=== PATIENT | male | born 1985 | race African-American/Black ===

== ENCOUNTER 2023-02-07 04:52 | Inpatient (IN) | payer BC ==
--- OUTSIDE RECORDS SUMMARY | 2023-02-07 04:55 | XMS REPORT | Continuity of Care Document ---
:1985 Author Organization [facility] t Address [address] [place] [address]. [address] [place] [address] Care Team Providers Name Role Phone Pcp, Patient Does Not Have A Primary Care Physician [phone] LEAH LIM Attending Clinician Unavailable Leah Lim DO Attending Clinician HARITHA KIRBY Attending Clinician Unavailable Haritha Alexander Attending Clinician Problems Condition Condition Condition Status Onset Resolution Last Treating Co mments Source Name Details Category Date Date Treatment Clinician Date Screen for Screen for Disease Active Overview : Univers STD STD 10-13 Formattin ity of (sexually (sexually 00:00: g of this [place] transmitte transmitte 00 note Me dical d disease) d disease) might be Branch different from the original. ICD10 Diagnosis Term [employer] Chief Utility Tobacco Tobacco Disease Active Univers use use 10-13 ity of disorder disorder 00:00: [address] Allergies, Adverse Reactions, Alerts Allergy Allergy Status Severity Reaction(s) Onset Inactive Treating Comm ents Source Name Type Date Date Clinician NO KNOWN Drug Active Univers ALLERGIE Class ity of S [facility] Social History Social Habit Start Date Stop Date Quantity Comments Source History of Cigarette Smoker Universi ty of tobacco use [facility] Exposure to 2021-11-17 2021-11-27 Not sure University SARS-CoV-2 00:00:00 21:37:00 [facility] (event) Branch Alcohol intake 2021-11-27 2021-11-27 Current University of 00:00:00 00:00:00 non-drinker of [place] [facility] alcohol (finding) [place] Tobacco use and 2014-10-13 2014-10-13 Smokeless tobacco Un iversity of exposure 00:00:00 00:00:00 non-user [facility] Tobacco Comment 2014-10-13 2014-10-13 smokes 4 x per Unive rsity of 00:00:00 00:00:00 day [facility] Sex Ass[birth year] Universit y of 00:00:00 00:00:00 [facility] Smoking Status Start Date Stop Date Source Smokes tobacco daily 2014-10-13 00:00:00 Univers ity of [facility] Medications Ordered Filled Start Stop Current Ordering Indication Dosage Frequency Signature Comments Components Source Medication Medication Date Date Medication? Clinician (SIG) Name Name NaCl 0.9% 2022- No 1000mL at 999 Uni vers (NS) bolus 10-26 mL/hr, ity of infusion 18:30: 20:02 1,000 mL, [place] 1,000 mL 00 :00 IV Medical Infusion, Branch ONCE, 1 dose, On 10/26/22 at 1330, FANTASMA famotidine 2022- No 20mg 20 mg, Univ ers (PEPCID 10-26 Slow IV ity of (PF)) 17:45: 17:52 Push, [place] injection 00 :00 ONCE, 1 Medical 20 mg dose, On Branch 10/26/22 at 1245, FANTASMA ondansetron 2022- No 4mg 4 mg, Slow Univers (ZOFRAN 10-26 IV Push, ity of (PF)) 17:45: 17:52 ONCE, 1 [place] injection 4 00 :00 dose, On Medi leonidas mg Sat10/26/22 Branch at 1245, FANTASMA ondansetron Yes [id number] 4mg Take 1 Univers 4 mg 10-26 tablet by ity of disintegrat 00:00: mouth [place] ing tablet 00 every 8 Medica l (eight) Branch hours as needed for Nausea and Vomiting (N/V). NaCl 0.9% 2022-0 2022- No 1000mL at 999 Uni vers (NS) bolus 11-28 mL/hr, ity of infusion 05:30: 05:27 1,000 mL, [place] 1,000 mL 00 :00 IV Medical Infusion, Branch ONCE, 1 dose, On Tu11/28/21 at 0030, FANTASMA dicyclomine 2021- No 20mg 20 mg, Uni vers (BENTYL) 11-28 Intramuscu ity of injection 04:15: 03:28 lar, ONCE [place] 20 mg 00 :00 NOW, 1 Medical dose, On Branch Sat11/27/21 at 2315, Routine ondansetron 2021- No 4mg 4 mg, Univ ers (ZOFRAN-ODT 11-28 Oral, ity of ) 04:15: 03:28 ONCE, 1 [place] disintegrat 00 :00 dose, On Medi leonidas ing tablet Mon Branch 4 mg 11/27/21 at 2315, Routine NaCl 0.9% 2021- No 1000mL at 999 Uni vers (NS) bolus 11-28 mL/hr, ity of infusion 04:15: 04:18 1,000 mL, [place] 1,000 mL 00 :00 IV Medical Infusion, Branch ONCE, 1 dose, On Sat11/27/21 at 2315, FANTASMA ondansetron Yes [id number] 4mg Take 1 Univers 4 mg 7-11 tablet by ity of disintegrat 00:00: mouth [place] ing tablet 00 every 8 Medica l (eight) Branch hours as needed for Nausea and Vomiting (N/V). ondansetron 2022- No [id number] 4mg Take 1 Univers 4 mg 7-11 06-09 tablet by ity of disintegrat 00:00: 00:00 [place] tablet 00 :00 every 8 Medica l (eight) Branch hours as needed for Nausea and Vomiting (N/V). azithromyci Yes [id number] 500mg Take 1 Tab Univers n 6-04 by mouth ity of (ZITHROMAX) 00:00: [place]. [place] 500 mg 00 Medical tablet Branch azithromyci 2022- No [id number] 500mg Take 1 Tab Univers n 6-04 06-09 by mouth ity of (ZITHROMAX) 00:00: 00:00 daily. [place] 500 mg 00 :00 Medical tablet Branch Vital Signs Vital Name Observation Time Observation Value Comments Source Systolic blood 2022-10-26 20:00:00 107 mm[Hg] Univer sity of pressure [place] [facility] [place] Diastolic blood 2022-10-26 20:00:00 77 mm[Hg] Unive rsity of pressure [facility] Heart rate 2022-10-26 20:00:00 53 /min [facility]i ty [facility] [place] [facility] Respiratory rate 2022-10-26 20:00:00 12 /min Univ ersity [facility] [place] [facility] Oxygen saturation in 2022-10-26 20:00:00 100 /min University of Arterial blood by [place] [facility] leon[place] Pulse oximetry Branch Body temperature 2022-10-26 17:32:00 36.5 Berta Univ ersity [facility] [place] [facility] Body height 2022-10-26 17:32:00 175.3 cm [facility] [place] [facility] Body weight 2022-10-26 17:32:00 70.308 kg [facility] [place] [facility] BMI 2022-10-26 17:32:00 22.89 kg/m2 [facility] [place] [facility] Systolic blood 2021-11-28 05:00:00 106 mm[Hg] Univer sity of [facility] Branch Diastolic blood 2021-11-28 05:00:00 77 mm[Hg] Unive rsity of pressure [facility] Branch Heart rate 2021-11-28 05:00:00 52 /min [facility]i ty [facility] [place] [facility] Respiratory rate 2021-11-28 05:00:00 19 /min Univ ersity [facility] Medical Branch Oxygen saturation in 2021-11-28 05:00:00 99 /min University of Arterial blood by [place] [facility] leonidas Pulse oximetry Branch Body height 2021-11-28 02:38:00 175.3 cm [facility] [place] [facility] Body weight 2021-11-28 02:38:00 74.844 kg [facility] [place] [facility] BMI 2021-11-28 02:38:00 24.37 kg/m2 Universi ty [facility] Branch Procedures Procedure Date / Time Performed Performing Clinician Hemanth PEREIRA 2022-10-26 17:45:00 Leah Lim [facility] COMP. METABOLIC PANEL 2022-10-26 17:45:00 Leah Lim [facility] ([id number]) Medical [place] CBC WITH DIFF 2022-10-26 17:45:00 Leah Lim [facility] CONSENT/REFUSAL FOR 2022-10-26 17:25:28 Doctor Unassigned, No Un [facility] DIAGNOSIS AND Name Medical Branch TREATMENT CREATINE KINASE 2021-11-28 03:26:00 Haritha Kirby [facility] LIPASE 2021-11-28 03:26:00 Haritha Kirby [facility] COMP. METABOLIC PANEL 2021-11-28 03:26:00 Haritha Kirby [facility] ([id number]) [facility] CBC WITH DIFF 2021-11-28 03:26:00 Haritha Kirby [facility] URINALYSIS 2021-11-28 03:26:00 Haritha Kirby [facility] COVID-19 (ID NOW RAPID 2021-11-28 02:44:00 Brian Doty [facility] TESTING) [facility] Encounters Start End Encounter Admission Attending Care Care Encounter Source Date/Time Date/Time Type Type Clinicians Facility Department ID 2022-10-26 2022-10-26 [facility] [id number] Univers 12:34:00 15:04:00 LEAH stephenson [facility] 2022-10-26 2022-10-26 [facility] [id number] Univers 12:34:00 15:04:00 Leah MCDANIEL [id number] [facility] [id number] [facility] [id number] [facility] 084 Branch 2021-11-27 2021-11-28 Emergency [facility] [id number] Univers 21:44:00 00:32:00 HARITHA stephenson [facility] 2021-11-27 2021-11-28 Emergency [facility] [id number] Univers 21:44:00 00:32:00 Haritha MCDANIEL [id number] i ty [facility] [id number] [facility] [id number] [facility] 084 Branch Results Test Description Test Time Test Comments Results Result Comments Source COMP. METABOLIC PANEL ([id number]) 2022-10-26 18:46:58 Test Item Value Reference Range Interpretation Comme nts NA (test code = 3766290587) 139 mmol/L 135-145 K (test code = 8498956450) 4.8 mmol/L 3.5-5.0 CL (test code = 8763239996) 106 mmol/L 98-108 CO2 TOTAL (test code = 0433346234) 25 mmol/L 23-31 AGAP (test code = 0882855088) 8 2-16 BUN (test code = 6820214696) 17 mg/dL 7-23 GLUCOSE (test code = 9054941442) 96 mg/dL 70-110 CREATININE (test code = 0.86 mg/dL 0.60-1.25 2177739310) TOTAL BILI (test code = 1.0 mg/dL 0.1-1.8 0737528374) CALCIUM (test code = 2015520503) 9.2 mg/dL 8.6-10.6 T PROTEIN (test code = 7365163297) 8.1 g/dL 6.3-8.2 ALBUMIN (test code = 8838024794) 4.5 g/dL 3.5-5.0 ALK PHOS (test code = 7633790271) 63 U/L 34-122 ALTv (test code = 1742-6) 41 U/L 5-50 AST(SGOT) (test code = 4174041956) 61 U/L 13-40 H eGFR (test code = 5317399443) 100.1 mL/min/1.73m2 EMILEE (test code = EMILEE) Association of Glomerular Filtration Rate (GFR) and Staging of Kidney Disease* + +-------- + ------+| GFR (mL/min/1.73 m2) ?| With Kidney Damage ?| ?Without Kidney Damage+ +-- + +| ?>90 ?| ?Stage one ?| ? Normal ?+ +------- + -------+| ?60-89 ?| ?Stage two ?| ? Decreased GFR ? + +-------- + ------+| ?30-59 ?| ?Stage three ?| ? Stage three ? + +-------- + ------+| ?15-29 ?| ?Stage four ? | ? Stage four ?+ +------- + -------+| ?<15 (or dialysis) ? ?| ?Stage five ? | ? Stage five ?+ +------- + -------+ *Each stage assumes the associated GFR level has been in effect for at least three months. ?Stages 1 to 5, with or without kidney disease, indicate chronic kidney disease. Notes: Determination of stages one and two (with eGFR >59mL/min/1.73 m2) requires estimation of kidney damage for at least three months as defined by structural or functional abnormalities of the kidney, manifested by either:Pathological abnormalities or Markers of kidney damage (including abnormalities in the composition of the blood or urine or abnormalities in imaging tests). Lab Interpretation (test code = Abnormal 86361-2) [facility] 18:46:18 Test Item Value Reference Range Interpretation Comments LIPASE (test code = 4465635023) 30 U/L 0-220 Lab Interpretation (test code = Normal 18552-5) [facility] WITH [id number] 18:31:10 Test Item Value Reference Range Interpretation Comments WBC (test code = 7.01 See_Comment [Automated 9843-2) message] The sy stem which generated this result transmitted reference range : 4.20 - 10.70 10*3/?L. The reference range was not used to interpret this result as normal/abnormal . RBC (test code = 5.14 See_Comment [Automated 858-5) message] The sy stem which generated this result transmitted reference range : 4.26 - 5.52 10*6/?L. The reference range was not used to interpret this result as normal/abnormal . HGB (test code = 15.9 g/dL 12.2-16.4 718-7) HCT (test code = 47.5 % 38.4-49.3 4544-3) MCV (test code = 92.4 fL 81.7-95.6 787-2) MCH (test code = 30.9 pg 26.1-32.7 785-6) MCHC (test code = 33.5 g/dL 31.2-35.0 786-4) RDW-SD (test code = 44.6 fL 38.5-51.6 96007-1) RDW-CV (test code = 13.2 % 12.1-15.4 788-0) PLT (test code = 262 See_Comment [Automated 777-3) message] The sy stem which generated this result transmitted reference range : 150 - 328 10*3/ ?L. The reference r jurgen was not used to interpret this result as normal/abnormal . MPV (test code = 9.6 fL 9.8-13.0 L 79608-0) NRBC/100 WBC (test 0.0 See_Comment [Automat ed code = 1818701383) message] The system which generated this result transmitted reference range : 0.0 - 10.0 /100 WBCs. The refer ence range was not u sed to interpret th is result as normal/abnormal . NRBC x10^3 (test code See_Comment [Auto mated = 7850989154) message] The s ystem which generated this result transmitted reference range : 10*3/?L. The reference range was not used to interpret this result as normal/abnormal . GRAN MAT (NEUT) % 57.6 % (test code = 770-8) IMM GRAN % (test code 0.30 % = 5202307139) LYMPH % (test code = 30.0 % 736-9) MONO % (test code = 11.1 % 5905-5) EOS % (test code = 0.6 % 713-8) BASO % (test code = 0.4 % 706-2) GRAN MAT x10^3(ANC) 4.04 10*3/uL 1.99-6.95 (test code = 0497889616) IMM GRAN x10^3 (test 0.00-0.06 code = 3541111826) LYMPH x10^3 (test code 2.10 10*3/uL 1.09-3.23 = 731-0) MONO x10^3 (test code 0.78 10*3/uL 0.36-1.02 = 742-7) EOS x10^3 (test code = 0.04 10*3/uL 0.06-0.53 L 711-2) BASO x10^3 (test code 0.03 10*3/uL 0.01-0.09 = 704-7) Lab Interpretation Abnormal (test code = 66692-4) [facility] WITH [id number] 04:10:09 Test Item Value Reference Range Interpretation Comments WBC (test code = See_Comment [Automated 6690-2) message] The sy stem which generated this result transmitted reference range : 4.20 - 10.70 10*3/?L. The reference range was not used to interpret this result as normal/abnormal . RBC (test code = See_Comment [Automated 789-8) message] The sy stem which generated this result transmitted reference range : 4.26 - 5.52 10*6/?L. The reference range was not used to interpret this result as normal/abnormal . HGB (test code = 14.7 g/dL 12.2-16.4 718-7) HCT (test code = 44.6 % 38.4-49.3 4544-3) MCV (test code = 94.3 fL 81.7-95.6 787-2) MCH (test code = 31.1 pg 26.1-32.7 785-6) MCHC (test code = 33.0 g/dL 31.2-35 786-4) RDW-SD (test code = 44.0 fL 38.5-51.6 09713-3) RDW-CV (test code = 12.7 % 12.1-15.4 788-0) PLT (test code = See_Comment [Automated 777-3) message] The sy stem which generated this result transmitted reference range : 150 - 328 10*3/ ?L. The reference r jurgen was not used to interpret this result as normal/abnormal . MPV (test code = 9.3 fL 9.8-13 L 02142-2) NRBC/100 WBC (test See_Comment [Automat ed code = 9690008946) message] The system which generated this result transmitted reference range : 0.0 - 10.0 /100 WBCs. The refer ence range was not u sed to interpret th is result as normal/abnormal . NRBC x10^3 (test code See_Comment [Auto mated = 1476590170) message] The s ystem which generated this result transmitted reference range : 10*3/?L. The reference range was not used to interpret this result as normal/abnormal . GRAN MAT (NEUT) % 57.5 % (test code = 770-8) IMM GRAN % (test code 0.30 % = 4035542926) LYMPH % (test code = 27.9 % 736-9) MONO % (test code = 13.2 % 5905-5) EOS % (test code = 0.7 % 713-8) BASO % (test code = 0.4 % 706-2) GRAN MAT x10^3(ANC) 4.08 10*3/uL 1.99-6.95 (test code = 3070982085) IMM GRAN x10^3 (test 0-0.06 code = 7968306755) LYMPH x10^3 (test code 1.98 10*3/uL 1.09-3.23 = 731-0) MONO x10^3 (test code 0.94 10*3/uL 0.36-1.02 = 742-7) EOS x10^3 (test code = 0.05 10*3/uL 0.06-0.53 L 711-2) BASO x10^3 (test code 0.03 10*3/uL 0.01-0.09 = 704-7) Lab Interpretation Abnormal (test code = 72723-6) [facility]. METABOLIC PANEL ([id number])2021-11-28 04:00:09 Test Item Value Reference Range Interpretation Comments NA (test code = 140 mmol/L 135-145 3546788887) K (test code = 4.1 mmol/L 3.5-5 4728386191) CL (test code = 105 mmol/L 98-108 4141466400) CO2 TOTAL (test code = 26 mmol/L 23-31 9999643087) AGAP (test code = 2-16 9533379413) BUN (test code = 17 mg/dL 7-23 7404625055) GLUCOSE (test code = 84 mg/dL 70-110 5608564251) CREATININE (test code = 1.27 mg/dL 0.6-1.25 H 4715089360) TOTAL BILI (test code = 0.5 mg/dL 0.1-1.9 5568860368) CALCIUM (test code = 9.3 mg/dL 8.6-10.6 6346140671) T PROTEIN (test code = 7.4 g/dL 6.3-8.2 3156925480) ALBUMIN (test code = 4.5 g/dL 3.5-5 5002095946) ALK PHOS (test code = 66 U/L 34-122 7705574039) ALTv (test code = 26 U/L 5-50 1742-6) AST(SGOT) (test code = 30 U/L 13-40 0672084189) eGFR (test code = mL/min/1.73m2 3186821925) EMILEE (test code = EMILEE) Association of Glomerular Filtration Rate (GFR) and Staging of Kidney Disease* + --+ --+ ------+| GFR (mL/min/1.73 m2) ?| With Kidney Damage ?| ?Without Kidney Damage+ --------+ --------+ +| ?>90 ?| ?Stage one ?| ? Normal ?+ ---+ ---+ -------+| ?60-89 ?| ?Stage two ?| ? Decreased GFR ? + --+ --+ ------+| ?30-59 ?| ?Stage three ?| ? Stage three ? + --+ --+ ------+| ?15-29 ?| ?Stage four ? | ? Stage four ?+ ---+ ---+ -------+| ?<15 (or dialysis) ? ?| ?Stage five ? | ? Stage five ?+ ---+ ---+ -------+ *Each stage assumes the associated GFR level has been in effect for at least three months. ?Stages 1 to 5, with or without kidney disease, indicate chronic kidney disease. Notes: Determination of stages one and two (with eGFR >59mL/min/1.73 m2) requires estimation of kidney damage for at least three months as defined by structural or functional abnormalities of the kidney, manifested by either:Pathological abnormalities or Markers of kidney damage (including abnormalities in the composition of the blood or urine or abnormalities in imaging tests). Lab Interpretation Abnormal (test code = 68828-3) [facility] 04:00:09 Test Item Value Reference Range Interpretation Comments LIPASE (test code = 9843236224) 58 U/L 0-220 Lab Interpretation (test code = Normal 88731-6) [facility] [id number] 03:59:49 Test Item Value Reference Range Interpretation Comments CK (test code = 7691172882) 169 U/L 33-194 Lab Interpretation (test code = Normal 00657-8) [facility]"
--- NOTE | 2023-02-07 05:35 | EDPHYS ---
Physician Documentation [facility] Name: Carroll Temple Age: 37 yrs Sex: Male : 1985 Arrival Date: 02/07/2023 Time: 04:52 Bed 7 Private MD: ED Physician Brad Mason HPI: 02/07 05:16 This 37 yrs old Black Male presents to ER via Unassigned with complaints of Foot Pain, suleiman INFECTED FOOT. 05:16 The patient presents with decreased range of motion, pain, that is acute. The suleiman complaints affect the right foot, ball of right foot and arch of right foot. Context: resulted from the patient stepping on a nail, while wearing shoes, Mechanism of Injury: puncture. Onset: The symptoms/episode began/occurred 7 day(s) ago. Modifying factors: The symptoms are alleviated by nothing, elevation of extremity, the symptoms are aggravated by weight bearing, movement, wearing shoes. Associated signs and symptoms: Pertinent positives: swelling. Severity of symptoms: At their worst the symptoms were moderate, in the emergency department the symptoms are unchanged. The patient has not experienced similar symptoms in the past. Historical: - Allergies: 05:18 No Known Allergies; kd3 - Home Meds: 05:18 None [Active]; kd3 - PMHx: 05:18 None; kd3 - Immunization history:: Adult Immunizations up to date. - Social history:: Smoking status: Patient denies any tobacco usage or history of. ROS: 05:20 Constitutional: Negative for fever, chills, and weight loss, Eyes: Negative for injury, suleiman pain, redness, and discharge, ENT: Negative for injury, pain, and discharge, Neck: Negative for injury, pain, and swelling, Cardiovascular: Negative for chest pain, palpitations, and edema, Respiratory: Negative for shortness of breath, cough, wheezing, and pleuritic chest pain, Abdomen/GI: Negative for abdominal pain, nausea, vomiting, diarrhea, and constipation, Back: Negative for injury and pain, : Negative for injury, bleeding, discharge, and swelling, Skin: Negative for injury, rash, and discoloration, Neuro: Negative for headache, weakness, numbness, tingling, and seizure, Psych: Negative for depression, anxiety, suicide ideation, homicidal ideation, and hallucinations, Allergy/Immunology: Negative for hives, rash, and allergies, Endocrine: Negative for neck swelling, polydipsia, polyuria, polyphagia, and marked weight changes, Hematologic/Lymphatic: Negative for swollen nodes, abnormal bleeding, and unusual bruising, 05:20 MS/extremity: Positive for decreased range of motion, erythema, pain, swelling, tenderness, of the right foot, Exam: 05:20 Constitutional: This is a well developed, well nourished patient who is awake, alert, suleiman and in no acute distress. Head/Face: Normocephalic, atraumatic. Eyes: Pupils equal round and reactive to light, extra-ocular motions intact. Lids and lashes normal. Conjunctiva and sclera are non-icteric and not injected. Cornea within normal limits. Periorbital areas with no swelling, redness, or edema. ENT: Nares patent. No nasal discharge, no septal abnormalities noted. Tympanic membranes are normal and external auditory canals are clear. Oropharynx with no redness, swelling, or masses, exudates, or evidence of obstruction, uvula midline. Mucous membranes moist. Neck: Trachea midline, no thyromegaly or masses palpated, and no cervical lymphadenopathy. Supple, full range of motion without nuchal rigidity, or vertebral point tenderness. No Meningismus. Chest/axilla: Normal chest wall appearance and motion. Nontender with no deformity. No lesions are appreciated. Cardiovascular: Regular rate and rhythm with a normal S1 and S2. No gallops, murmurs, or rubs. Normal PMI, no JVD. No pulse deficits. Respiratory: Lungs have equal breath sounds bilaterally, clear to auscultation and percussion. No rales, rhonchi or wheezes noted. No increased work of breathing, no retractions or nasal flaring. Abdomen/GI: Soft, non-tender, with normal bowel sounds. No distension or tympany. No guarding or rebound. No evidence of tenderness throughout. Back: No spinal tenderness. No costovertebral tenderness. Full range of motion. Male : Normal genitalia with no discharge or lesions. Skin: Warm, dry with normal turgor. Normal color with no rashes, no lesions, and no evidence of cellulitis. Neuro: Awake and alert, GCS 15, oriented to person, place, time, and situation. Cranial nerves II-XII grossly intact. Motor strength 5/5 in all extremities. Sensory grossly intact. Cerebellar exam normal. Normal gait. Psych: Awake, alert, with orientation to person, place and time. Behavior, mood, and affect are within normal limits. 05:20 Musculoskeletal/extremity: ROM: no acute changes, Circulation is intact in all extremities. Sensation intact. Compartment Syndrome exam of affected extremity: is normal. DVT Exam: negative Homans' sign noted on exam, no appreciated bluish discoloration, pain, swelling, tenderness, erythema, increased warmth, that is moderate, of the right foot, 06:17 ECG was reviewed by the Attending Physician. [facility] Vital Signs: 05:16 BP 105 / 80; Pulse 78; Resp 19; Temp 99.2(O); Pulse Ox 99% on R/A; Weight 74.84 kg; kd3 Height 5 ft. 8 in. ; Pain 8/10; 06:49 BP 133 / 81; Pulse 62; Resp 19; Pulse Ox 100% on R/A; kd3 05:16 Body Mass Index 25.09 (74.84 kg, 172.72 cm) kd3 05:16 Pain Scale: Adult kd3 MDM: 05:04 Patient medically screened. [facility] 06:15 Differential diagnosis: fracture, sprain, foreign body, penetrating trauma, gout, suleiman cellulitis. Data reviewed: vital signs, nurses notes, lab test result(s), EKG, radiologic studies, plain films. Consideration of Admission/Observation Patient was admitted/placed on observation. Escalation of care including admission/observation considered. I considered the following discharge prescriptions or medication management in the emergency department Medications were administered in the Emergency Department. See MAR. Independent interpretation of the following test(s) in the Emergency Department X-Ray: My interpretation is r foot xray. Test considered but Not performed: MRI: no mri. Historians other than the Patient: pt well informed. Care significantly affected by the following chronic conditions: none. Counseling: I had a detailed discussion with the patient and/or guardian regarding the historical points, exam findings, and any diagnostic results supporting the discharge/admit diagnosis, lab results, radiology results, the need for further work-up and treatment in the hospital. 02/07 05:15 Order name: CBC with Diff; Complete Time: 06:18 [facility] 02/07 05:15 Order name: Comprehensive Metabolic Panel; Complete Time: 06:18 [facility] 02/07 05:22 Order name: PT-INR; Complete Time: 06:18 [facility] 02/07 05:15 Order name: Foot Right 3 View XRAY [facility] 02/07 05:22 Order name: Chest Single View XRAY [facility] 02/07 05:22 Order name: EKG; Complete Time: 05:23 [facility] 02/07 05:15 Order name: NPO; Complete Time: 05:20 [facility] 02/07 05:22 Order name: EKG - Nurse/Tech; Complete Time: 05:50 [facility] EC:17 Rate is 60 beats/min. Rhythm is regular. QRS [place] is Normal. CT interval is normal. QRS suleiman interval is normal. QT interval is normal. No Q waves. T waves are Normal. No ST changes noted. Clinical impression: NSR w/ Non-specific ST/T Changes and No evidence of ischemia. Interpreted by me. Reviewed by me. Administered Medications: 05:50 Drug: Clindamycin IVPB 900 mg IVPB once over 30 mins; (mix in 50 mL) Route: IVPB; kd3 Infused Over: 30 mins; Site: right antecubital; 06:32 Follow up: IV Status: Completed infusion kd3 05:50 Drug: NS 0.9% IV 1000 ml IV at 1 bolus Per protocol; 1000 mL bolus Route: IV; Rate: 1 kd3 bolus; Site: right antecubital; 05:50 Drug: morphine IVP or IV 4 mg IVP once over 4 mins Route: IVP; Infused Over: 4 mins; kd3 Site: right antecubital; 06:50 Follow up: Response: No adverse reaction; Pain is decreased kd3 05:50 Drug: Ondansetron IVP 4 mg IVP once; over 2 minutes Route: IVP; Site: right antecubital;kd3 06:50 Follow up: Response: No adverse reaction kd3 06:32 Drug: levofloxacin IVPB 750 mg 150 ml IVPB once over 90 mins Volume: 150 ml; Route: kd3 IVPB; Infused Over: 90 mins; Site: right antecubital; 07:44 Drug: NS 0.9% IV 1000 ml IV at 125 ml/hr continuous Route: IV; Rate: 125 ml/hr; Site: rs5 right antecubital; Disposition Summary: 02/07/23 05:34 Hospitalization Ordered Notes: Hospitalization Status: Observation [facility] Provider: Anil Carrillo cha Location: Telemetry/MedSurg (observation) suleiman Condition: Stable suleiman Problem: an ongoing problem suleiman Symptoms: have improved suleiman Bed/Room Type: Standard [facility] Room Assignment: suleiman Diagnosis - Puncture wound without foreign body, right foot - infected suleiman - Elevated white blood cell count, unspecified suleiman Forms: - Medication Reconciliation Form suleiman - SBAR form suleiman - Leadership Thank You Letter suleiman Signatures: Dispatcher [employer] Brad Victor MD MD cha Doucette, Kyli, RN RN kd3 Arnold Jacobs RN RN rs5 Corrections: (The following items were deleted from the chart) 06:27 05:43 Dressing - Wound ordered. suleiman kd3
--- NOTE | 2023-02-07 05:35 | ER ---
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 I got a tetanus shot from my employee health office. But since i stepped on the nail, the swelling and pain has gotten progressively worse in the foot. Coronavirus screen: Vaccine status: Patient reports being unvaccinated. Ebola Screen: No symptoms or risks identified at this time. Initial Sepsis Screen: Does the patient meet any 2 criteria? No. Patient's initial sepsis screen is negative. Does the patient have a suspected source of infection? No. Patient's initial sepsis screen is negative. Risk Assessment: Do you want to hurt yourself or someone else? Patient reports no desire to harm self or others. Onset of symptoms was February 07, 2023. 05:16 Method Of Arrival: Wheelchair kd3 05:16 Acuity: EDITH 3 kd3 Triage Assessment: 05:18 General: Appears uncomfortable, Behavior is anxious. Pain: Complains of pain in right kd3 foot. 05:18 Musculoskeletal: Swelling present in right foot. Injury Description: Puncture sustained kd3 to arch of right foot. Historical: - Allergies: 05:18 No Known Allergies; kd3 - Home Meds: 05:18 None [Active]; kd3 - PMHx: 05:18 None; kd3 - Immunization history:: Adult Immunizations up to date. - Social history:: Smoking status: Patient denies any tobacco usage or history of. Screenin:19 [facility] ED Fall Risk Assessment (Adult) History of falling in the last 3 months, kd3 including since admission No falls in past 3 months (0 pts) Confusion or Disorientation No (0 pts) Intoxicated or Sedated No (0 pts) Impaired Gait Yes (1 pt) Mobility Assist Device Used No (0 pt) Altered Elimination No (0 pt) Score/Fall Risk Level 0 - 2 = Low Risk Maintained a safe environment. Abuse screen: Denies threats or abuse. Denies injuries from another. Nutritional screening: No deficits noted. Tuberculosis screening: No symptoms or risk factors identified. Assessment: 05:50 General: see triage . kd3 06:49 General: Appears comfortable, Behavior is calm, cooperative. Neuro: Level of kd3 Consciousness is awake, alert, obeys commands, Oriented to person, place, time, situation. Cardiovascular: Patient's skin is warm and dry. Respiratory: Airway is patent Trachea midline Respiratory effort is even, unlabored, Respiratory pattern is regular, symmetrical. Vital Signs: 05:16 BP 105 / 80; Pulse 78; Resp 19; Temp 99.2(O); Pulse Ox 99% on R/A; Weight 74.84 kg; kd3 Height 5 ft. 8 in. ; Pain 8/10; 06:49 BP 133 / 81; Pulse 62; Resp 19; Pulse Ox 100% on R/A; kd3 05:16 Body Mass Index 25.09 (74.84 kg, 172.72 cm) kd3 05:16 Pain Scale: Adult kd3 ED Course: 05:03 Patient arrived in ED. es 05:04 Brad Mason MD is Attending Physician. suleiman 05:15 Char Weber, HU is Primary Nurse. kd3 05:18 Triage completed. kd3 05:18 Arm band placed on right wrist. kd3 05:19 Patient has correct armband on for positive identification. Provided Education on: . kd3 05:31 Anil Carrillo MD is Hospitalizing Provider. suleiman 05:49 CBC with Diff Sent. kd3 05:49 Comprehensive Metabolic Panel Sent. kd3 05:50 PT-INR Sent. kd3 05:58 Foot Right 3 View XRAY In Process Unspecified. EDMS 05:58 Chest Single View XRAY In Process Unspecified. EDMS Administered Medications: 05:50 Drug: Clindamycin IVPB 900 mg IVPB once over 30 mins; (mix in 50 mL) Route: IVPB; kd3 Infused Over: 30 mins; Site: right antecubital; 06:32 Follow up: IV Status: Completed infusion kd3 05:50 Drug: NS 0.9% IV 1000 ml IV at 1 bolus Per protocol; 1000 mL bolus Route: IV; Rate: 1 kd3 bolus; Site: right antecubital; 05:50 Drug: morphine IVP or IV 4 mg IVP once over 4 mins Route: IVP; Infused Over: 4 mins; kd3 Site: right antecubital; 06:50 Follow up: Response: No adverse reaction; Pain is decreased kd3 05:50 Drug: Ondansetron IVP 4 mg IVP once; over 2 minutes Route: IVP; Site: right antecubital;kd3 06:50 Follow up: Response: No adverse reaction kd3 06:32 Drug: levofloxacin IVPB 750 mg 150 ml IVPB once over 90 mins Volume: 150 ml; Route: kd3 IVPB; Infused Over: 90 mins; Site: right antecubital; 07:44 Drug: NS 0.9% IV 1000 ml IV at 125 ml/hr continuous Route: IV; Rate: 125 ml/hr; Site: rs5 right antecubital; Medication: 06:49 VIS not applicable for this client. kd3 Outcome: 05:34 Decision to Hospitalize by Provider. [facility] 12:05 Patient left the ED. aa5 Signatures: Dispatcher [employer] Brad Victor MD MD cha Salyer, Edna es Calderon, Audri, RN RN aa5 Char Weber RN RN kd3 Arnold Jacobs RN RN rs5
[2023-02-07] MEDS ORDERED: MORPHINE 4 MG/ML SYR ONE (05:42)
[2023-02-07] MEDS ORDERED: ONDANSETRON 4 MG/2 ML VIAL ONE ×2 (05:42→12:50)
[2023-02-07] MEDS ORDERED: CLINDAMYCIN 900MG/D5W 900 MG/50 ML IVPB IV ONE (05:43)
[2023-02-07] MEDS ORDERED: Levofloxacin 750mg IV 750 MG/150 ML BAG IV ONE (05:43)
[2023-02-07] MEDS ORDERED: NA CHLORIDE 0.9% 2,000 ML ONE (05:43)
[2023-02-07 05:44] LABS: Absolute Lymphocytes (CBC) 0.9 K/uL (0.7-4.9); Hematocrit 44.1 % (39.6-49.0); Lymphocytes % 5.4 % (15.3-44.8); MCV 92.1 fL (80-100); MPV 7.8 fL (7.6-11.3); Platelets 297 thou/uL (152-406); RBC Red Blood Cell Count 4.79 M/uL (4.33-5.43)
[2023-02-07 06:01] LABS: Albumin 4.4 g/dL (3.4-5.0); Bilirubin Total 0.5 mg/dL (0.2-1.0); Potassium 3.9 mEq/L (3.5-5.1); Protein, Total 8.6 g/dL (6.4-8.2)
[2023-02-07 06:12] LABS: Protime INR 1.07
[2023-02-07 08:13] VITALS: BMI 24.3
[2023-02-07] MEDS ORDERED: INFLUENZA VACCINE (for 6+ mo) 0.5 ML DOSE IMVAC ONE (10:00)
[2023-02-07] MEDS ORDERED: PNEUMOCOCCAL VACCINE 0.5 ML IMVAC ONE (10:00)
--- NOTE | 2023-02-07 10:36 | HP ---
Date of Admission: 02/07/2023 Reason For Service: Right foot cellulitis, abscess, puncture wound, possible retained foreign body. Indication: This is the case of a male, who received a puncture wound as he claimed about a week ago after he was stepping on a nail while wearing his shoes. He is trying to deal with this for the las t few days. On the last few hours overnight, the pain got worse, he came to the ER, found to have sw elling over the area with cellulitis present, possibility of an abscess. The puncture wound is evide nt, although there is no drainage at this moment. That sealed few days ago and the swelling develope d. He cannot tell about any foreign body there, may be from the shoes itself and his fabrics, but he claimed the nail was not broken. Denies any dysuria, hematuria, hematochezia, melena. Denies any r ecent traveling out of the country. Denies any family member sick at home. Review of Systems: Ten points otherwise unremarkable. Allergies: NONE. Medications: None. Past Medical History: None. Social History: He does not smoke. He does not drink alcohol. Family History: Noncontributory. Physical Examination: General: The patient is awake, alert. HEENT: Pupils are equal, reactive. Anicteric. Neck: Supple. Chest: Clear. Heart: S1, S2. Abdomen: Soft and depressible. No guarding or rebound. Extremities: Good capillary refill. Peripheral pulses, dorsalis pedis, radialis present. Over the dorsum of the plantar surface of the foot, the patient has evidence and tattoo of the previous punctu re. At this moment, it is not draining, but underneath you feel fluctuance and abscess covering the entire arch of the foot. It is consistent with cellulitis and an abscess. No cyanosis of the toes. Neuro: Cranial nerves 2 through 12 grossly within normal limits. Laboratory Data: Blood work shows a WBC count of 16.9 with hemoglobin of 15. INR is 1.07. Potassiu m is 3.9, creatinine is 1.48, glucose 127, BUN is 21. Foot x-ray, official report is still pending, although grossly we do not see any metallic object there. Once again, other materials from the shoes can be hidden without localization on this x-ray. There is moderate diffuse and right foot edema. Assessment: This is a 37-year-old patient, who comes to us status post puncture wound over the right foot region few days ago, developed now swelling, redness consistent with abscess. This happened wh en he was stepped on a nail. He was using his shoes and the nail did not break, but it is hard to sa y if there is any foreign body retained from the fabric of the shoes itself that means rubber or fabr ic. For fact we have an abscess in that region, so we are going to do a wound exploration with drain age of an abscess and possible removal of foreign body since I explained to him sometimes it is not p ossible to find it. The benefits, alternatives, and risks of this procedure were fully explained to the patient, which include, but not limited to infection, bleeding, damage to adjacent structures, an esthesia complication, inability to find foreign bodies, chronic nonhealing wound, chronic pain, AL, and even . He may require wound care. He is very tender in that area. He wants to do under an esthesia and I do understand because of the entire sole of the foot, which is swollen. The OR was im mediately booked in OR. JOSEPHINE/PAUL Voice ID: [id number]
--- NOTE | 2023-02-07 11:47 | RAD REPORT ---
EXAM DESCRIPTION: XR Right Foot 3 Views CLINICAL HISTORY: Pain COMPARISON: None. TECHNIQUE: Right Foot 3 Views FINDINGS: No fracture or dislocation. No significant sclerotic/lytic bone lesion. Joint spaces unremarkable. Moderate, diffuse, right foot edema. IMPRESSION: Moderate, diffuse, right foot edema. Electronically signed by: Ezekiel Kenney MD 02/07/2023 6:24 AM CDT Due to temporary technical issues with the PACS/Fluency reporting system, reports are being signed by the in house radiologists without review as a courtesy to insure prompt reporting. The interpreting radiologist is fully responsible for the content of the report.
--- NOTE | 2023-02-07 11:57 | RAD REPORT ---
EXAM DESCRIPTION: XR Chest, 1 View CLINICAL HISTORY: The patient is 37 years old and is Male; COUGH TECHNIQUE: Frontal view of the chest. COMPARISON: No relevant prior studies available. FINDINGS: Lungs: Unremarkable. No consolidation. Pleural space: Unremarkable. No pneumothorax. Heart: Unremarkable. Mediastinum: Unremarkable. Bones/joints: No acute findings. IMPRESSION: No acute findings in the chest. Electronically signed by: Adi Simental MD 02/07/2023 6:05 AM CDT Due to temporary technical issues with the PACS/Fluency reporting system, reports are being signed by the in house radiologists without review as a courtesy to insure prompt reporting. The interpreting radiologist is fully responsible for the content of the report.
[2023-02-07] MEDS ORDERED: LIDOCAINE 2% MPF 5 ML VIAL ONE (12:15)
[2023-02-07] MEDS ORDERED: dexAMETHasone 10 MG/ML VIAL ONE (12:15)
[2023-02-07] MEDS ORDERED: FENTANYL CITR 100 MCG/2 ML ONE (12:15)
[2023-02-07] MEDS ORDERED: propofoL 200 MG/20 ML VIAL IV ONE (12:15)
[2023-02-07] MEDS ORDERED: KETOROLAC 30 MG/ML INJ ONE (12:15)
[2023-02-07] MEDS ORDERED: MIDAZOLAM HCL 2 MG/2 ML INJ ONE (12:16)
[2023-02-07] MEDS ORDERED: ONDANSETRON 4 MG/2 ML VIAL IV PRN (13:19)
[2023-02-07] MEDS ORDERED: ACETAMINOPHEN 325 MG TABLET PO PRN (13:19)
[2023-02-07] MEDS: NA CHLORIDE 0.9% 1,000 ML IV SCH ×2 (13:19→15:10)
[2023-02-07] MEDS: MORPHINE 4 MG/ML SYR ONE ×2 (13:46→13:56)
--- NOTE | 2023-02-07 14:25 | P.BOP ---
Preoperative diagnosis: s/p puncture wound right foot, non healing wound, abscess, cellulitis Postoperative diagnosis: same Primary procedure: Right plantar foot wound exploration with abscess drainage Secondary procedure: SubQ debridement of divitalized amd foreign debri tissue Other procedure(s): 5x3cm Estimated blood loss: <10cc Specimen: culture Findings: see dicta Anesthesia: General Complications: None Drain(s): Other (/" nugauze) Transferred to: Recovery Room Condition: Good
[2023-02-07] MEDS: CLINDAMYCIN 900MG/D5W 900 MG/50 ML IVPB IV SCH (16:30)
--- NOTE | 2023-02-07 17:21 | OP ---
Date of Procedure: 02/07/2023 Surgeon: Anil Carrillo MD Preoperative Diagnoses: Status post puncture wound of right foot, nonhealing wound, abscess, celluli tis. Postoperative Diagnoses: Status post puncture wound of right foot, nonhealing wound, abscess, cellul itis. Procedures: Right plantar foot wound exploration with abscess drainage, subcutaneous debridement of devitalized tissue with foreign body debris present. The abscess is about 5 x 3 cm. Estimated Blood Loss: Less than 10 cc. Specimen: Culture. Findings: The patient has this puncture wound, almost goes to the dorsum of the foot itself. There is a tunnel present in that area and that tunnel passed the fascia and then goes posterior to develop this abscess. The area was explored, profusely irrigated. We have some debris and devitalized tiss ue with some debris in it, but we cannot identify any large foreign body in that region. Anesthesia: General plus local. Packing: A quarter of an inch Nu Gauze. Indication: This is the case of a male. He does have a puncture wound on his foot about a week ago. He gets swollen to the point of the foot. We cannot see the plantar arch anymore. This morning, h e comes early hours of the morning because he could walk because of the pressure and the pain, and I was called for the evaluation and surgical intervention. The benefits, alternatives, and risks of in cision and drainage of the right foot abscess with exploration of the wound and possible removal of f oreign body fully explained to the patient, which include, but not limited to infection, bleeding, da mage to adjacent structures, anesthesia complication, recurrence, NE, and even . He also unders tands this may not relieve any symptoms. He might need more than one surgical intervention. He will require wound care. He signed a consent. Procedure In Detail: The patient was brought to the operating room, placed in supine position. Anes thesia was done without complication. Prior to surgery, we marked the area of the puncture wound, al though it is very obvious. So, once we prepped that area, time-out was called. We injected local an esthetic and then explored that wound. We unfortunately have to remove some devitalized tissue prese nt when we removed that tissue. Then, we have access to the tunnel and we see how deep this goes all the way down to the plantar fascia, goes deep into the area near the metatarsal region. We were abl e to that area to put the retractors and then be able to examine the area. Profuse irrigation was do ne of that cavity. A cavity that we found is about 5 x 3 cm. Cultures were obtained. But after irr igation and examination of the area, I cannot see any large foreign body, only the debris probably fr om the nail itself. I did not see any piece of nail in that region. The previous x-ray did not show any metallic foreign body anyway. We profusely irrigated the area. At this moment, we do not want to create more damage than the nail already did. We have enough exploration of that area. He also h as a chance that we explained to him before that. We might not be able to find foreign body even it is there. He understands that risk. Profuse irrigation was done and then hemostasis was obtained an d we proceeded to pack the abscess with a quarter of an inch iodoform. The patient tolerated the pro cedure well. The patient was sent to recovery in stable condition. JOSEPHINE/PAUL Voice ID: [id number] Report ID: [id number]
[2023-02-07] MEDS: MORPHINE 4 MG/ML SYR IV PRN (18:10)
[2023-02-08] MEDS: NA CHLORIDE 0.9% 1,000 ML IV SCH ×4 (00:03→19:33)
[2023-02-08] MEDS: CLINDAMYCIN 900MG/D5W 900 MG/50 ML IVPB IV SCH ×3 (00:03→18:10)
[2023-02-08] MEDS: MORPHINE 4 MG/ML SYR IV PRN ×5 (00:45→19:33)
[2023-02-08 03:19] LABS: Absolute Lymphocytes (CBC) 0.7 K/uL (0.7-4.9); Hematocrit 38.6 % (39.6-49.0); Lymphocytes % 5.1 % (15.3-44.8); MCV 92.2 fL (80-100); MPV 7.5 fL (7.6-11.3); Platelets 281 thou/uL (152-406); RBC Red Blood Cell Count 4.18 M/uL (4.33-5.43)
[2023-02-08 03:27] LABS: Potassium 4.3 mEq/L (3.5-5.1)
[2023-02-08] MEDS: Levofloxacin 750mg IV 750 MG/150 ML BAG IV SCH (05:31)
--- NOTE | 2023-02-08 17:16 | EKG ---
Test Date: 2023-02-07 Test Time: 05:54:20 Ip Paralegal: CYNTHIA MEASUREMENT RESULTS: Intervals: Rate: 60 DC: 188 QRSD: 100 QT: 394 QTc: 394 [place]: P: 51 DC: 188 QRS: 65 T: 3 INTERPRETIVE STATEMENTS: Normal sinus rhythm Nonspecific ST abnormality Abnormal ECG No previous ECG available for comparison Electronically Signed On 02-08-23 17:11:56 CDT by Kraig Ashford
[2023-02-09] MEDS: CLINDAMYCIN 900MG/D5W 900 MG/50 ML IVPB IV SCH ×3 (00:49→16:00)
[2023-02-09] MEDS: MORPHINE 4 MG/ML SYR IV PRN ×5 (00:50→21:43)
[2023-02-09] MEDS: Levofloxacin 750mg IV 750 MG/150 ML BAG IV SCH (05:03)
[2023-02-09] MEDS: NA CHLORIDE 0.9% 1,000 ML IV SCH ×4 (05:04→21:44)
--- NOTE | 2023-02-09 13:13 | P.PN ---
Subjective Date of Service: 02/08/23 Chief Complaint: foot abscess , cellulitis, s/p traumatic puncture Subjective: Tolerating diet, Improving Review of Systems General: Unremarkable ENT: Unremarkable Respiratory: Unremarkable Cardiovascular: Unremarkable Gastrointestinal: Unremarkable Genitourinary: Unremarkable Physical Examination - Vital Signs Temperature: 97.6 F Blood Pressure: 103/62 Pulse: 66 Respirations: 16 Pulse Ox (%): 97 - Physical Exam General: Alert, In no apparent distress, Oriented x3, Oriented x1 HEENT: Atraumatic, PERRLA Neck: Supple Respiratory: Normal air movement Cardiovascular: No edema, Normal pulses Gastrointestinal: Soft and benign Musculoskeletal: Swelling, Erythema, Tenderness, Warmth Integumentary: No cyanosis, Erythema, Warmth Neurological: Normal speech Assessment And Plan - Plan cont IV abx Pain control ambulation with assistance
--- NOTE | 2023-02-09 15:12 | PN ---
Date of Progress Note: 02/09/2023 Diagnosis: Foot cellulitis with status post traumatic puncture wound with a nail with a large absces s on the foot. Subjective: The patient was taken to the OR for drainage of an abscess debridement. The patient is doing better, but still the area with cellulitis. He cannot put a pressure there yet. Physical Examination: Vital Signs: Afebrile. Chest: Clear. Abdomen: Soft and depressible. Extremities: Good capillary refill. Foot shows packing removed today, large cavity. Swelling is st ill present, although diminished and redness also diminished and still present, slasher tender. Plan: We are going to continue the antibiotics. Follow up on the cultures. We are going to rehab t o evaluate him for possible assistance on his walking since he can barely put any pressure there. Hi s WBC count has come down from 17 to 13. The culture is still pending. JOSEPHINE/PAUL Voice ID: [id number] Report ID: [id number]
[2023-02-10] MEDS: CLINDAMYCIN 900MG/D5W 900 MG/50 ML IVPB IV SCH ×3 (00:21→17:10)
[2023-02-10] MEDS: Levofloxacin 750mg IV 750 MG/150 ML BAG IV SCH (05:01)
[2023-02-10] MEDS: NA CHLORIDE 0.9% 1,000 ML IV SCH ×3 (06:48→19:19)
[2023-02-10] MEDS: MORPHINE 4 MG/ML SYR IV PRN ×3 (10:04→22:50)
--- NOTE | 2023-02-10 11:04 | PN ---
Date of Progress Note: 02/10/2023 Diagnoses: Foot cellulitis, status post traumatic puncture wound with abscess, status post explorati on and drainage of a large abscess. Subjective: The patient is doing better. He still has swelling over the foot, a little bit less, li ttle bit less erythema too. Vital signs stable. Review of Systems: Ten points otherwise unremarkable. Physical Examination: Chest: Clear. Abdomen: Soft and depressible. Extremities: Good capillary refill. Right foot is still swollen, but less in amount, less erythema. No fluctuance. No crepitus. Packings were removed. Plan: We are getting a rehab to help him with safe ambulation and train him how to do the crutches w ith the postop shoes. We anticipate to probably send him home tomorrow if clinically he continues im proving with p.o. antibiotics by mouth. JOSEPHINE/PAUL Voice ID: [id number] Report ID: [id number]
[2023-02-11] MEDS: CLINDAMYCIN 900MG/D5W 900 MG/50 ML IVPB IV SCH ×2 (00:18→08:53)
[2023-02-11] MEDS: MORPHINE 4 MG/ML SYR IV PRN (05:01)
[2023-02-11] MEDS: NA CHLORIDE 0.9% 1,000 ML IV SCH (05:01)
[2023-02-11] MEDS: Levofloxacin 750mg IV 750 MG/150 ML BAG IV SCH (05:01)
[2023-02-11 08:59] VITALS: O2SAT 94
[2023-02-11 09:39] VITALS: BP 117/79; TEMP 96.8
--- NOTE | 2023-02-11 10:38 | P.DS ---
Admission Date: 02/10/23 Discharge Date: 02/11/23 Disposition: ROUTINE DISCHARGE Discharge Condition: GOOD Reason for Admission: foot abscess , cellulitis, s/p traumatic puncture Hospital Course: unremarkable Vital Signs/Physical Exam: Temp Pulse Resp BP Pulse Ox 96.8 F 51 16 117/79 99 02/11/23 08:00 02/11/23 08:00 02/11/23 08:00 02/11/23 08:00 02/11/23 08:00 General: Alert, In no apparent distress, Oriented x3, Cooperative HEENT: PERRLA Neck: Supple Respiratory: Normal air movement Cardiovascular: No edema, Normal pulses Gastrointestinal: Soft and benign, Non-distended, No rebound, No guarding Musculoskeletal: No clubbing, No swelling, No contractures, No warmth, Erythema (improved) Integumentary: No rashes, No breakdown, No warmth, No cyanosis, Erythema (improved) Neurological: Normal speech Laboratory Data at Discharge: WBC 12.90 thou/uL (4.3-10.9) H 02/08/23 02:23 Hgb 13.1 g/dL (13.6-17.9) L D 02/08/23 02:23 Hct 38.6 % (39.6-49.0) L 02/08/23 02:23 Plt Count 281 thou/uL (152-406) 02/08/23 02:23 PT 12.7 SECONDS (9.2-12.8) 02/07/23 05:47 INR 1.07 02/07/23 05:47 Sodium 135 mEq/L (136-145) L 02/08/23 02:23 Potassium 4.3 mEq/L (3.5-5.1) 02/08/23 02:23 BUN 14 mg/dL (7-18) 02/08/23 02:23 Creatinine 1.12 mg/dL (0.70-1.30) 02/08/23 02:23 Glucose 132 mg/dL (74-106) H 02/08/23 02:23 Total Bilirubin 0.5 mg/dL (0.2-1.0) 02/07/23 05:26 AST 34 U/L (15-37) 02/07/23 05:26 ALT 70 U/L (16-61) H 02/07/23 05:26 Alkaline Phosphatase 75 U/L (45-117) 02/07/23 05:26 Home Medications: NK [No Home Meds] 02/09/23 Physician Discharge Instructions: May clean foot with soap and water then triple antibiotic ointment with gauze to foot wound area daily Please cover the foot while showering Pt instructed by IV how to use crutches and he fee comfortable with use. Diet: AHA Activity: No lifting more than 10 lbs Followup: Anil Carrillo MD [ACTIVE - CAN ADMIT] - 1 Week NONE,NONE [Primary Care Provider] -
== END 2023-02-11 10:30 | disposition home or self-care (01) | DRG 571 ==
LOC: ER 04:52 → ERHOLD 05:36 → 2ND 13:04 → OBSVTOIN 02-10 11:18
PROVIDERS: ADMIT Surgery; ATTEND Surgery
PROC: 0JCQ0ZZ Extirpation of Matter from Right Foot Subcutaneous Tissue and Fascia, Open Approach (ICD-10-PCS; 2023-02-07)
PROC: 0JBQ0ZZ Excision of Right Foot Subcutaneous Tissue and Fascia, Open Approach (ICD-10-PCS; principal; 2023-02-07 12:30)
DX: L03.115 Cellulitis of right lower limb (principal); L02.611 Cutaneous abscess of right foot; B95.61 Methicillin susceptible Staphylococcus aureus infection as the cause of diseases classified elsewhere; D72.829 Elevated white blood cell count, unspecified
CPT/HCPCS: 36415; 71045; 80048; 80053; 85025; 85610; 87070; 87075; 87077; 87186; 87205; 88304; 93005; 96365; 96375; 97116; 97161; 99284; G0378; J1100; J2001; J2250; J2405; J2704; J3010; J7030